=== PATIENT | female | born 1965 | race Caucasian/White ===

== ENCOUNTER 2016-06-17 08:41 | Emergency (ER) | payer SELFPAY ==
[2016-06-17 08:47] VITALS: RESP 16
[2016-06-17] MEDS ORDERED: HYDROcodone/APAP 5-325MG 1 EACH TAB PO STA (09:01)
--- NOTE | 2016-06-17 09:03 | ED ---
General Adult HPI - General Chief complaint: Extremity Injury, Upper Stated complaint: FALL, CHEST CONTUSION Time Seen by Provider: 06/17/16 08:56 Source: patient, RN notes reviewed Mode of arrival: ambulatory Limitations: no limitations - History of Present Illness Initial comments: Patient 51-year-old female who presents emergency room today with a chief complaint of a fall that occurred approximately 1 AM last night. She does admit that she took a Tylenol 3 after the fall with little relief the symptoms. She does admit that she tripped fell down to the left shoulder. States her arm was not outstretched. She admits that she's having increased pain to the left shoulder and left sided chest wall. Patient states worse with certain movements of abduction and extension. She does admit that hurts when she takes deep breath or coughs. She denies any head injury or loss conscious. She denies any other complaints. Patient denies any recent fever, chills, shortness of breath, chest pain, back pain, abdominal pain, nausea or vomiting, numbness or tingling, dysuria or hematuria, constipation or diarrhea, headaches or visual changes, or any other complaints. - Related Data Previous Rx's Medication Instructions Recorded Hydrocodone/Acetaminophen [[place] 1 each PO Q6HR PRN #20 tab 06/17/16 5-325] Ibuprofen [Motrin] 600 mg PO Q6HR PRN #40 day 06/17/16 Allergies Allergy/AdvReac Type Severity Reaction Status Date / Time latex Allergy Unknown Verified 06/17/16 08:47 Penicillins Allergy Unknown Verified 06/17/16 08:47 Sulfa (Sulfonamide Allergy Unknown Verified 06/17/16 08:47 Antibiotics) Review of Systems ROS Statement: Those systems with pertinent positive or pertinent negative responses have been documented in the HPI. ROS Other: All systems not noted in ROS Statement are negative. Past Medical History Past Medical History: No Reported History History of Any Multi-Drug Resistant Organisms: None Reported Past Surgical History: Section, Tonsillectomy Past Psychological History: Anxiety Smoking Status: Current every day smoker Past Alcohol Use History: Occasional Past Drug Use History: None Reported General Exam - General Exam Comments Initial Comments: General: The patient is awake and alert, in no distress, and does not appear acutely ill. Eye: Pupils are equal, round and reactive to light, extra-ocular movements are intact. No nystagmus. There is normal conjunctiva bilaterally. No signs of icterus. Ears, nose, mouth and throat: There are moist mucous membranes and no oral lesions. Neck: The neck is supple, there is no tenderness or JVD. Cardiovascular: There is a regular rate and rhythm. No murmur, rub or gallop is appreciated. Respiratory: Lungs are clear to auscultation, respirations are non-labored, breath sounds are equal. No wheezes, stridor, rales, or rhonchi. Musculoskeletal: Shows normal appearance of the cervical, thoracic, lumbar spine. No step-offs deformity. She appeared no tenderness over the spinous processes. Shows full range motion of her cervical spine. Patient has normal appearance of left shoulder no obvious deformity. Mild swelling. Tender locally over the before meals joint and posterior aspect. Patient is tender palpation over the left upper anterior ribs. Strength 5/5. Sensation intact. Pulses equal bilaterally 2+. Neurological: A&O x 3. CN II-XII intact, There are no obvious motor or sensory deficits. Coordination appears grossly intact. Speech is normal. Skin: Skin is warm and dry and no rashes or lesions are noted. Psychiatric: Cooperative, appropriate mood & affect, normal judgment. Limitations: no limitations Course Vital Signs 06/17/16 08:45 Temperature 97.1 F L Pulse Rate 73 Respiratory 16 Rate Blood Pressure 163/77 O2 Sat by Pulse 96 Oximetry Medical Decision Making - Medical Decision Making Patient x-rays reviewed and are unremarkable. Patient feeling better after [place] here in the emergency room. Patient will be discharged home advised follow-up with orthopedics for further evaluation. She'll be given a short prescription of [place] to go home with for pain along with anti-inflammatories of ibuprofen. Patient advised return if any symptoms increase or worsen or for any other concerns. Disposition Clinical Impression: Rib contusion, Shoulder injury Disposition: HOME SELF-CARE Condition: Good Instructions: Rib Contusion (ED), Rotator Cuff Injury (ED) Additional Instructions: Please follow-up with family doctor/orthopedic doctor as discussed. Please use medications as prescribed. Please be aware that the [place] may make you drowsy. Please use ice to the affected area for 20 minutes at a time 4 times daily. Please return to emergency room symptoms increase or worsen or for any other concerns. Prescriptions: Hydrocodone/Acetaminophen [[place] 5-325] 1 each PO Q6HR PRN #20 tab PRN Reason: Pain Ibuprofen [Motrin] 600 mg PO Q6HR PRN #40 day PRN Reason: Pain Referrals: None,Stated [Primary Care Provider] - 1-2 days Tavon Fall MD [STAFF PHYSICIAN] - 1-2 days Time of Disposition: 09:52
--- NOTE | 2016-06-17 09:45 | XR ---
EXAMINATION TYPE: PA chest and left rib series DATE OF EXAM: 06/17/2016 9:34 AM COMPARISON: NONE HISTORY: 51-year-old female left-sided rib pain from fall FINDINGS: Cardiomediastinal silhouette, aorta, and pulmonary vasculature are within normal limits. No consolida tion, pneumothorax, or pleural effusion. No displaced left rib fracture. IMPRESSION: No displaced left rib fracture or acute cardiopulmonary process seen.
--- NOTE | 2016-06-17 09:46 | XR ---
EXAMINATION TYPE: XR shoulder complete LT DATE OF EXAM: 06/17/2016 9:34 AM COMPARISON: NONE HISTORY: 51-year-old female with pain TECHNIQUE: 3 views FINDINGS: Some vacuum phenomenon noted at the AC joint which can be seen with distraction at the joint. AC join t remains congruent without abnormal widening. Subacromial space is preserved. There is smooth deline ation to the greater tuberosity. No acute fracture or dislocation. IMPRESSION: No acute osseous abnormality seen.
[2016-06-17 10:11] VITALS: BP 134/84; PULSE 62; TEMP 97.5
== END 2016-06-17 10:09 | disposition home or self-care (01) ==
LOC: EC 08:41
DX: S20.212A Contusion of left front wall of thorax, initial encounter (principal); S49.92XA Unspecified injury of left shoulder and upper arm, initial encounter; Z91.040 Latex allergy status; Z88.2 Allergy status to sulfonamides; Z88.0 Allergy status to penicillin; F17.200 Nicotine dependence, unspecified, uncomplicated
CPT/HCPCS: 99283

== ENCOUNTER → 2016-09-07 | Outpatient (CLI) | payer OTHER ==
--- NOTE | 2016-09-07 14:59 | BMR ---
EXAMINATION TYPE: MR breast BILAT wo/w con DATE OF EXAM: 09/07/2016 12:31 PM COMPARISON: Outside mammogram HISTORY: Abnormal mammogram, right breast mass TECHNIQUE: A series of fat and water weighted images in the long and short axis views of both breasts are obtained in conjunction with dynamic contrast MRI with subtraction technique. The patient was i njected with 15 mL intravenous MultiHance gadolinium contrast. Three-dimensional and additional pos tprocessing imaging is created on independent workstation and reviewed during official interpretation of this study. Patient was unable to complete the exam. FINDINGS: Left and right breast show background fibroglandular tissue. Scattered breast cysts are pre sent bilaterally. Scattered stippled background enhancement is present bilaterally. No suspicious mas s-like enhancement. There is no evident adenopathy. IMPRESSION: Left breast BI-RADS 2 benign, right breast BI-RADS 2 benign, follow[place] [facility] [place] Exam may be somewhat limited.
== END | disposition home or self-care (01) ==
LOC: RADMRIMAIN 11:04
PROVIDERS: ATTEND Surgery
DX: N63 Unspecified lump in breast (principal)
CPT/HCPCS: 0159T; C8908; A9577; 77059

== ENCOUNTER 2017-04-04 10:45 | Emergency (ER) | payer OTHER ==
[2017-04-04] MEDS ORDERED: PANTOPRAZOLE 40 MG/10 ML VIAL IVP STA (11:50)
[2017-04-04] MEDS ORDERED: SODIUM CHLORIDE 0.9% 1,000 ML IV STA (11:50)
[2017-04-04] MEDS ORDERED: MORPHINE SULFATE 2 MG/ML SYRINGE IV STA (11:50)
[2017-04-04] MEDS ORDERED: RX INFO: IV CONTRAST WAS GIVEN 1 EACH MISC MISCELLANE PRN (11:50)
[2017-04-04] MEDS ORDERED: ONDANSETRON 4 MG/2 ML VIAL IVP STA (11:50)
[2017-04-04 12:28] LABS: Basophils % (A) 0 %; CH 31.8; CHCM 33.6; Eosinophils # (A) 0.1 k/uL (0-0.7); Eosinophils % (A) 2 %; HDW 2.37; HGB 16.3 gm/dL (11.4-16.0); Luc # (Auto) 0.13; Luc % (Auto) 1; Lymphocytes # (A) 2.7 k/uL (1.0-4.8); Lymphocytes % (A) 28 %; MCH 31.7 pg (25.0-35.0); MCHC 33.4 g/dL (31.0-37.0); Mean Platelet Volume 7.3; Monocytes # (A) 0.4 k/uL (0-1.0); Monocytes % (A) 4 %; Neutrophils # (A) 6.1 k/uL (1.3-7.7); Neutrophils % (A) 64 %; RBC 5.16 m/uL (3.80-5.40); RDW 13.4 % (11.5-15.5); WBC 9.5 k/uL (3.8-10.6); WBC (Perox) 8.79
[2017-04-04 12:34] LABS: ALT 36 U/L (9-52); AST 17 U/L (14-36); Alkaline Phosphatase 106 U/L (38-126); Amylase 50 U/L (30-110); Anion Gap 10 mmol/L; Blood Urea Nitrogen 10 mg/dL (7-17); Calcium 9.6 mg/dL (8.4-10.2); Carbon Dioxide 25 mmol/L (22-30); Chloride 105 mmol/L (98-107); Glucose 89 mg/dL (74-99); Non-African American GFR(MDRD) >60 (>60 ml/min/1.73 sqM); Potassium 4.7 mmol/L (3.5-5.1); Sodium 140 mmol/L (137-145); Total Bilirubin 0.5 mg/dL (0.2-1.3); Total Protein 6.9 g/dL (6.3-8.2)
--- NOTE | 2017-04-04 12:37 | ED ---
General Adult HPI - General Chief complaint: Abdominal Pain Stated complaint: VOMITING BLOOD, WEAKNESS, ABDOMINAL PAIN Time Seen by Provider: 04/04/17 10:59 Source: patient, RN notes reviewed, old records reviewed Mode of arrival: ambulatory Limitations: no limitations - History of Present Illness Initial comments: This is a 52-year-old female to the ER for evaluation. Patient presents today for evaluation of abdominal pain. Patient has no history of prior abdominal pain. No medical history takes no specific medications. Patient denies history of smoking or drinking. Patient has no surgical history. Patient has history of epigastric about pain starting last night worse since today but mainly complaining of vomiting nausea vomiting. Patient vomited around 5 times. Initially no blood but has proceeded to have blood with her vomit. Patient denies feelings of lightheadedness or dizziness. Denies any recent fevers travel history or sick contacts. - Related Data Home Medications Medication Instructions Recorded Confirmed No Known Home Medications [No 04/04/17 04/04/17 Known Home Medications] Allergies Allergy/AdvReac Type Severity Reaction Status Date / Time latex Allergy Unknown Verified 04/04/17 11:18 Penicillins Allergy Unknown Verified 04/04/17 11:18 Sulfa (Sulfonamide Allergy Unknown Verified 04/04/17 11:18 Antibiotics) Review of Systems ROS Statement: Those systems with pertinent positive or pertinent negative responses have been documented in the HPI. ROS Other: All systems not noted in ROS Statement are negative. Past Medical History Past Medical History: No Reported History History of Any Multi-Drug Resistant Organisms: None Reported Past Surgical History: Section, Tonsillectomy Past Psychological History: Anxiety Smoking Status: Current every day smoker Past Alcohol Use History: None Reported Past Drug Use History: None Reported General Exam Limitations: no limitations General appearance: alert, in no apparent distress Head exam: Present: atraumatic, normocephalic, normal inspection Eye exam: Present: normal appearance, PERRL, EOMI. Absent: scleral icterus, conjunctival injection, periorbital swelling ENT exam: Present: normal exam, mucous membranes moist Neck exam: Present: normal inspection. Absent: tenderness, meningismus, lymphadenopathy Respiratory exam: Present: normal lung sounds bilaterally. Absent: respiratory distress, wheezes, rales, rhonchi, stridor Cardiovascular Exam: Present: regular rate, normal rhythm, normal heart sounds. Absent: systolic murmur, diastolic murmur, rubs, gallop, clicks GI/Abdominal exam: Present: soft, normal bowel sounds. Absent: distended, tenderness, guarding, rebound, rigid Extremities exam: Present: normal inspection, full ROM, normal capillary refill. Absent: tenderness, pedal edema, joint swelling, calf tenderness Back exam: Present: normal inspection Neurological exam: Present: alert, oriented X3, CN II-XII intact Psychiatric exam: Present: normal affect, normal mood Skin exam: Present: warm, dry, intact, normal color. Absent: rash Course Vital Signs 04/04/17 04/04/17 10:48 12:42 Temperature 97.4 F L Pulse Rate 69 71 Respiratory 18 20 Rate Blood Pressure 157/75 129/71 O2 Sat by Pulse 99 96 Oximetry - Reevaluation(s) Reevaluation #1: 04/04/17 13:24 Patient is currently eating food, currently eating soup in the emergency room without difficulty Medical Decision Making - Medical Decision Making 52 female in the ER for evaluation of the bowel pain nausea vomiting vomiting blood. Patient with currently eating food without difficulty lab work is normal no nausea currently, CT abdomen and pelvis is negative the patient can be discharged home - Lab Data Result diagrams: 04/04/17 12:14 04/04/17 12:14 Lab Results 04/04/17 04/04/17 04/04/17 Range/Units 12:14 12:14 12:14 WBC 9.5 (3.8-10.6) k/uL RBC 5.16 (3.80-5.40) m/uL Hgb 16.3 H (11.4-16.0) gm/dL Hct 49.0 H (34.0-46.0) % MCV 95.0 (80.0-100.0) fL MCH 31.7 (25.0-35.0) pg MCHC 33.4 (31.0-37.0) g/dL RDW 13.4 (11.5-15.5) % Plt Count 160 (150-450) k/uL Neutrophils % 64 % Lymphocytes % 28 % Monocytes % 4 % Eosinophils % 2 % Basophils % 0 % Neutrophils # 6.1 (1.3-7.7) k/uL Lymphocytes # 2.7 (1.0-4.8) k/uL Monocytes # 0.4 (0-1.0) k/uL Eosinophils # 0.1 (0-0.7) k/uL Basophils # 0.0 (0-0.2) k/uL Sodium 140 (137-145) mmol/L Potassium 4.7 (3.5-5.1) mmol/L Chloride 105 (98-107) mmol/L Carbon Dioxide 25 (22-30) mmol/L Anion Gap 10 mmol/L BUN 10 (7-17) mg/dL Creatinine 0.70 (0.52-1.04) mg/dL Est GFR (MDRD) Af Amer >60 (>60 ml/min/1.73 sqM) Est GFR (MDRD) Non-Af >60 (>60 ml/min/1.73 sqM) Glucose 89 (74-99) mg/dL Plasma Lactic Acid [place] (0.7-2.0) mmol/L Calcium 9.6 (8.4-10.2) mg/dL Total Bilirubin 0.5 (0.2-1.3) mg/dL AST 17 (14-36) U/L ALT 36 (9-52) U/L Alkaline Phosphatase 106 (38-126) U/L Total Creatine Kinase 42 (30-135) U/L CK-MB (CK-2) 0.8 (0.0-2.4) ng/mL CK-MB (CK-2) Rel Index 1.9 Troponin I <0.012 (0.000-0.034) ng/mL Total Protein 6.9 (6.3-8.2) g/dL Albumin 4.2 (3.5-5.0) g/dL Amylase 50 (30-110) U/L Lipase 50 (23-300) U/L 04/04/17 Range/Units 12:14 WBC (3.8-10.6) k/uL RBC (3.80-5.40) m/uL Hgb (11.4-16.0) gm/dL Hct (34.0-46.0) % MCV (80.0-100.0) fL MCH (25.0-35.0) pg MCHC (31.0-37.0) g/dL RDW (11.5-15.5) % Plt Count (150-450) k/uL Neutrophils % % Lymphocytes % % Monocytes % % Eosinophils % % Basophils % % Neutrophils # (1.3-7.7) k/uL Lymphocytes # (1.0-4.8) k/uL Monocytes # (0-1.0) k/uL Eosinophils # (0-0.7) k/uL Basophils # (0-0.2) k/uL Sodium (137-145) mmol/L Potassium (3.5-5.1) mmol/L Chloride (98-107) mmol/L Carbon Dioxide (22-30) mmol/L Anion Gap mmol/L BUN (7-17) mg/dL Creatinine (0.52-1.04) mg/dL Est GFR (MDRD) Af Amer (>60 ml/min/1.73 sqM) Est GFR (MDRD) Non-Af (>60 ml/min/1.73 sqM) Glucose (74-99) mg/dL Plasma Lactic Acid [place] 1.0 (0.7-2.0) mmol/L Calcium (8.4-10.2) mg/dL Total Bilirubin (0.2-1.3) mg/dL AST (14-36) U/L ALT (9-52) U/L Alkaline Phosphatase (38-126) U/L Total Creatine Kinase (30-135) U/L CK-MB (CK-2) (0.0-2.4) ng/mL CK-MB (CK-2) Rel Index Troponin I (0.000-0.034) ng/mL Total Protein (6.3-8.2) g/dL Albumin (3.5-5.0) g/dL Amylase (30-110) U/L Lipase (23-300) U/L - Radiology Data Radiology results: report reviewed (CT abdomen and pelvis is negative for acute disease), image reviewed Disposition Clinical Impression: Mia-Alford tear, Nausea & vomiting Disposition: HOME SELF-CARE Condition: Good Instructions: Hematemesis (ED), Gastroenteritis (ED) Referrals: None,Stated [Primary Care Provider] - 1-2 days
[2017-04-04 12:46] LABS: Creatine Kinase 42 U/L (30-135)
--- NOTE | 2017-04-04 12:51 | CT ---
EXAMINATION TYPE: CT abdomen pelvis w con DATE OF EXAM: 04/04/2017 COMPARISON: NONE HISTORY: 52-year-old female Upper Abdominal pain and vomiting blood today TECHNIQUE: Contiguous axial scanning of the abdomen and pelvis following administration of 100 ml Omn ipaque 300 IV contrast. Delayed images through the kidneys and coronal/sagittal reconstructions perf ormed. CT DLP: 1237 mGycm Automated exposure control for dose reduction was used. FINDINGS: The heart is normal size without pericardial effusion. Lung bases clear without pleural effusion. There may be mild diffuse gastric fold thickening. There is an intermediate density 1.9 cm lesion posterior right liver lobe with attenuation of 49 Houn sfield units. This does not significantly change on the delayed kidney images. Otherwise, no focal li michael lesion. There is prominent breathing motion artifact causing some limitation in assessment. No biliary ductal dilatation. Portal venous system appears patent. The gallbladder, adrenal glands, kidneys, spleen, and pancreas appear within normal limits. No dilated small bowel, free fluid, or free air. Mildly enlarged 9 mm right lower quadrant mesenteric lymph node is nonspecific. Otherwise, no mesente megan or retroperitoneal lymphadenopathy seen. Normal appendix. Some liquid stool noted in the right hemicolon. Mild sigmoid diverticulosis without pericolonic infla mmatory change. Heterogeneous appearance to the uterus with suggestion of underlying posterior uterine body fibroid m easuring 2.1 cm. This appears to be in intramural location. There is some calcification seen along th e endometrial stripe and junctional zone. Further ultrasound evaluation can be considered. The endome trial stripe may be abnormally thickened towards the left fundus measuring up to 2.5 cm or this could represent additional underlying fibroid, refer to sagittal image 33 and axial image 69. Bladder is urine distended. Ovaries not clearly identified. No abnormal fluid collection in the pelvi s. Bones: No osseous destructive process. IMPRESSION: 1. MILD DIFFUSE GASTRIC FOLD THICKENING AND SOME LIQUID STOOL IN THE RIGHT HEMICOLON. CORRELATE FOR P OSSIBLE GASTROENTERITIS. 2. QUERY PATIENT'S MENOPAUSAL STATUS. THERE MAY BE SOME EXCESSIVE ENDOMETRIAL THICKENING TOWARDS THE LEFT SIDE OF THE FUNDUS UP TO 2.5 CM. FURTHER ULTRASOUND EVALUATION IS RECOMMENDED. IF THERE ARE NO A CUTE PELVIC SYMPTOMS, THIS CAN BE PERFORMED ON A NONEMERGENT BASIS. 3. INDETERMINANT 1.9 CM HYPODENSE LESION POSTERIOR RIGHT LIVER LOBE. THIS DOES NOT SEEM TO CHANGE ATT ENUATION ON THE DELAYED KIDNEY IMAGES. AN ATYPICAL HEMANGIOMA AND COMPLICATED CYST ARE SOME OF THE BE NIGN DIFFERENTIAL CONSIDERATIONS. A 3-6 MONTH FOLLOW-UP IS RECOMMENDED TO ENSURE STABILITY. 4. A NONSPECIFIC MILDLY ENLARGED MESENTERIC LYMPH NODE MEASURING 9 MM IS PROBABLY REACTIVE/POST INFLA MMATORY. THIS CAN ALSO BE REASSESSED AT THE FOLLOW-UP.
[2017-04-04 12:58] LABS: Creatine Kinase MB 0.8 ng/mL (0.0-2.4); Troponin I <0.012 ng/mL (0.000-0.034)
[2017-04-04 13:35] VITALS: BP 135/81; PULSE 65; RESP 18; TEMP 98
== END 2017-04-04 13:38 | disposition home or self-care (01) ==
LOC: EC 10:45
DX: K22.6 Gastro-esophageal laceration-hemorrhage syndrome (principal); F17.200 Nicotine dependence, unspecified, uncomplicated; Z91.040 Latex allergy status; Z88.0 Allergy status to penicillin; Z88.2 Allergy status to sulfonamides
CPT/HCPCS: 99284 ×2; 96374 ×2; 96361 ×2; 36415; 80053; 82150; 82550; 82553; 83605; 83690; 84484; 85025; 74177; Q9967; C9113

== ENCOUNTER 2017-07-04 22:01 | Inpatient (IN) | payer MEDICAID, OTHER ==
--- NOTE | 2017-07-04 23:32 | ED ---
General Adult HPI - General Chief complaint: Psychiatric Symptoms Stated complaint: Mental Health Time Seen by Provider: 07/04/17 22:15 Source: patient, family, RN notes reviewed, old records reviewed Mode of arrival: ambulatory Limitations: no limitations - History of Present Illness Initial comments: 52-year-old female presents for evaluation of suicidal ideation. Patient denies any suicide attempt. She denies a specific plan. She does admit to being significantly depressed with suicidal thoughts since her boyfriend committed suicide approximately 2 weeks ago. She states she has no other live, no job. She blames herself for her preference suicide. She states her family also blames her for the suicide. She denies any suicide attempt, including no ingestion. She has no significant past medical history not currently on any medications. She denies any physical complaints. She has remote history of inpatient psychiatric treatment. She is currently seeing a counselor. - Related Data Home Medications Medication Instructions Recorded Confirmed No Known Home Medications [No 04/04/17 07/04/17 Known Home Medications] Allergies Allergy/AdvReac Type Severity Reaction Status Date / Time latex Allergy Unknown Verified 07/04/17 22:33 Penicillins Allergy Unknown Verified 07/04/17 22:33 Sulfa (Sulfonamide Allergy Unknown Verified 07/04/17 22:33 Antibiotics) Review of Systems ROS Statement: Those systems with pertinent positive or pertinent negative responses have been documented in the HPI. ROS Other: All systems not noted in ROS Statement are negative. Past Medical History Past Medical History: No Reported History History of Any Multi-Drug Resistant Organisms: None Reported Past Surgical History: Section, Tonsillectomy Additional Past Surgical History / Comment(s): rhinoplasty Past Psychological History: Anxiety, Depression Smoking Status: Current every day smoker Past Alcohol Use History: None Reported Past Drug Use History: None Reported General Exam Limitations: no limitations General appearance: alert, in no apparent distress Head exam: Present: atraumatic, normocephalic Eye exam: Present: normal appearance, PERRL ENT exam: Present: normal exam Neck exam: Present: normal inspection. Absent: meningismus Respiratory exam: Present: wheezes (Scattered wheezing, with good air entry). Absent: respiratory distress, rhonchi Cardiovascular Exam: Present: regular rate, normal rhythm GI/Abdominal exam: Present: soft. Absent: distended, tenderness, guarding Extremities exam: Present: normal inspection, normal capillary refill. Absent: pedal edema Back exam: Present: normal inspection, full ROM. Absent: tenderness Neurological exam: Present: alert, oriented X3, CN II-XII intact, motor sensory deficit Psychiatric exam: Present: depressed, suicidal ideation Skin exam: Present: warm, dry, intact. Absent: cyanosis, diaphoretic Course Vital Signs 07/04/17 22:05 Temperature 98.0 F Pulse Rate 66 Respiratory 16 Rate Blood Pressure 144/80 O2 Sat by Pulse 97 Oximetry - Reevaluation(s) Reevaluation #1: 07/04/17 23:32 Patient is medically cleared, awaiting EPS evaluation. Medical Decision Making - Medical Decision Making 52-year-old female presenting with depression and suicidal ideation. Patient is medically cleared, evaluated by EPS, she will need for inpatient psychiatric treatment. She agrees to sign herself in. - Lab Data Lab Results 07/04/17 Range/Units 22:27 Urine Opiates Screen Not Detected (NotDetected) Ur Oxycodone Screen Not Detected (NotDetected) Urine Methadone Screen Not Detected (NotDetected) Ur Propoxyphene Screen Not Detected (NotDetected) Ur Barbiturates Screen Not Detected (NotDetected) U Tricyclic Antidepress Not Detected (NotDetected) Ur Phencyclidine Scrn Not Detected (NotDetected) Ur Amphetamines Screen Not Detected (NotDetected) U Methamphetamines Scrn Not Detected (NotDetected) U Benzodiazepines Scrn Not Detected (NotDetected) Urine Cocaine Screen Not Detected (NotDetected) U Marijuana (THC) Screen Not Detected (NotDetected) Disposition Clinical Impression: Suicidal ideation, Depression Disposition: ADMITTED IP TO THIS HOSP Referrals: None,Stated [Primary Care Provider] - 1-2 days Decision to Admit Reason: Admit from EC Decision Date: 07/05/17 Decision Time: 00:48
[2017-07-04 23:43] LABS: Amphetamine Screen,Urine Not Detected (NotDetected); Barbiturate Screen,Urine Not Detected (NotDetected); Benzodiazepines Screen,Urine Not Detected (NotDetected); Cocaine Screen,Urine Not Detected (NotDetected); Methadone Screen, Urine Not Detected (NotDetected); Opiate Screen,Urine Not Detected (NotDetected); Oxycodone Screen, Urine Not Detected (NotDetected); Phencyclidine Screen,Urine Not Detected (NotDetected); Tricyclic Antidepressant,Urine Not Detected (NotDetected); Urn Cannabinoid Scrn Not Detected (NotDetected)
[2017-07-05] MEDS ORDERED: MAGNESIUM HYDROXIDE 2,400 MG/10 ML CUP PO PRN (01:16)
[2017-07-05] MEDS ORDERED: ACETAMINOPHEN TAB 325 MG TAB PO PRN (01:16)
[2017-07-05] MEDS ORDERED: MAG HYDROX/AL HYDROX/SIMETH 30 ML CUP PO PRN (01:16)
[2017-07-05 04:01] VITALS: BMI 24.5
[2017-07-05] MEDS ORDERED: NICOTINE 14MG/24HR PATCH TRANSDERM SCH (09:00)
[2017-07-05 09:10] LABS: Basophils # (A) 0.1 k/uL (0-0.2); Basophils % (A) 1 %; Eosinophils # (A) 0.2 k/uL (0-0.7); Eosinophils % (A) 2 %; HCT 46.5 % (34.0-46.0); HGB 15.4 gm/dL (11.4-16.0); Lymphocytes # (A) 2.9 k/uL (1.0-4.8); Lymphocytes % (A) 36 %; MCH 31.8 pg (25.0-35.0); MCV 96.3 fL (80.0-100.0); Mean Platelet Volume 8.5; Monocytes # (A) 0.3 k/uL (0-1.0); Monocytes % (A) 4 %; Neutrophils # (A) 4.5 k/uL (1.3-7.7); Neutrophils % (A) 55 %; Platelet Count 162 k/uL (150-450); RBC 4.83 m/uL (3.80-5.40); RDW 12.8 % (11.5-15.5); WBC 8.2 k/uL (3.8-10.6)
[2017-07-05] MEDS: FLUoxetine HCL 20 MG CAP PO SCH (11:02)
[2017-07-05] MEDS ORDERED: NICOTINE 14MG/24HR PATCH TRANSDERM PRN (11:24)
--- NOTE | 2017-07-05 11:35 | P.HPMEDMHU ---
History of Present Illness H&P Date: 07/05/17 Chief Complaint: back pain Patient is a 52 yo female with a past medical history of tobacco abuse, depression, and back pain currently admitted to the mental health unit with suicidal ideation. Her boyfriend recently committed suicide and she has been struggling with depression since that time. Patient seen an examined. She states that she was supposed to start seeing a family doctor for her depression and back pain. She has struggled with back pain for years. It is worse when she is standing in one place for a long time or lifting things. She has tried motrin which has not helped. She states that tylenol does not agree with her stomach. She denies leg weakness and numbness and tingling. She does not want to try mobic and her back is not currently bothering her as she is not working. She denies any bladder or bowel incontinence. Review of Systems General: no fever/chills, no rigors, no weight loss/weight gain, no unusual fatigue Eyes: no noticable visual changes, no loss of vision ENT: no rhinorrhea, no congestion, no sore throat Cardiovascular: no chest pain, no palpitations, no preyncope/syncope, no edema Pulmonary: no shortness of breath, no wheezing, + chronic cough Abdominal: no abdominal pain, no constipation, no diarrhea, no vomiting, no nausea Genitourinary: no dysuria, no urinary frequency, no unusual discharge/odor Neuro: no unusual paresthesias, no unusual paresis/paralysis, no headache Dermatologic: no unusual rashes, no unusual lesions, no unusual changes in nails Hematologic: no hemoptysis, no hematuria, no melena/hematochezia Psychiatric: Depression, poor overall sleep pattern Skeletal: + Chronic low back pain Past Medical History Past Medical History: No Reported History History of Any Multi-Drug Resistant Organisms: None Reported Past Surgical History: Section, Tonsillectomy Additional Past Surgical History / Comment(s): rhinoplasty Smoking Status: Current every day smoker - Past Family History Mother Family Medical History: Diabetes Mellitus, Hypertension Additional Family Medical History / Comment(s): chronic kidney disease Father Family Medical History: Cancer Additional Family Medical History / Comment(s): lung cancer Medications and Allergies Home Medications Medication Instructions Recorded Confirmed Type No Known Home Medications [No 04/04/17 07/05/17 History Known Home Medications] Allergies Allergy/AdvReac Type Severity Reaction Status Date / Time latex Allergy Unknown Verified 07/05/17 04:28 Penicillins Allergy Unknown Verified 07/05/17 04:28 Sulfa (Sulfonamide Allergy Unknown Verified 07/05/17 04:28 Antibiotics) Physical Exam Osteopathic Statement: *. No significant issues noted on an osteopathic structural exam other than those noted in the History and Physical/Consult. Vitals: Vital Signs Temp Pulse Pulse Resp BP BP Pulse Ox 07/05/17 03:46 97.7 F 53 L 15 123/82 07/05/17 01:17 98.5 F 87 18 149/79 97 07/04/17 22:05 98.0 F 66 16 144/80 97 Intake and Output 07/04/17 07/05/17 07/05/17 22:59 06:59 14:59 Other: Weight 63.503 kg 66.8 kg General: non toxic, no distress, appears at stated age, normal weight Derm: no unusual rashes/lesions no unusual ecchymoses, warm, dry Head: atraumatic, normocephalic, symmetric Eyes: EOMI, no lid lag, anicteric sclera, pupils equal round reactive to light ENT: Nose and ears atraumatic, no thrush, no pharyngeal erythema Neck: No thyromegaly, no cervical lymphadenopathy, trachea midline, supple Mouth: no lip lesion, mucus membranes moist Cardiovascular: S1S2 reg, no murmur, positive posterior tibial pulse bilateral, no edema, capillary refill less than 2 seconds Lungs: Breath sounds bilaterally, no rhonchi, no rales , no accessory muscle use Abdominal: soft, nontender to palpation, no guarding, no appreciable organomegaly, normal bowel sounds Ext: no gross muscle atrophy, muscle strength in all 4 extremities grossly normal, no contractures, Neuro: CN II-XI grossly intact, light touch intact all 4 extremities Psych: Alert, oriented, anxious, crying, fidgeting throughout conversation Cranial Nerve Examination - Cranial Nerves Cranial Nerve II- Optic: Intact Cranial Nerve III- Oculomotor: Intact Cranial Nerve IV- Trochlear: Intact Cranial Nerve V- Trigeminal: Intact Cranial Nerve - Abducens: Intact Cranial Nerve VII- Facial: Intact Cranial Nerve VIII- Auditory: Intact Cranial Nerve IX- Glossopharyngeal: Intact Cranial Nerve X- Vagus: Intact Cranial Nerve XI- Accessory: Intact Cranial Nerve XII- Hypoglossal: Intact Results CBC & Chem 7: 07/05/17 08:33 Labs: Abnormal Lab Results - Last 24 Hours (Table) 07/05/17 Range/Units 08:33 Hct 46.5 H (34.0-46.0) % Thrombosis Risk Factor Assmnt - DVT/VTE Prophylaxis DVT/VTE Prophylaxis: Low risk, early ambulation encouraged - Choose All That Apply Each Factor Represents 1 point: Age 41-60 years Thrombosis Risk Factor Assessment Total Risk Factor Score: 1 Thrombosis Risk Factor Assessment Level: Low Risk Assessment and Plan Assessment: Chronic low back pain - motrin prn - outpatient evaluation Tobacco abuse - cessation - nicotine replacement as needed Depression with suicidal ideation - your psych management Thank you for allowing us to participate in the care of this patient. We will follow peripherally. Do not hesitate to contact us with questions. Someone can be reached from the [facility] hospitalist group at all hours of the day at [phone].
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
[2017-07-06 09:24] LABS: ALT 31 U/L (9-52); AST 17 U/L (14-36); Albumin 4.3 g/dL (3.5-5.0); Alkaline Phosphatase 75 U/L (38-126); Anion Gap 11 mmol/L; Blood Urea Nitrogen 15 mg/dL (7-17); Calcium 10.1 mg/dL (8.4-10.2); Carbon Dioxide 29 mmol/L (22-30); Chloride 103 mmol/L (98-107); Glucose 158 mg/dL (74-99); Potassium 4.9 mmol/L (3.5-5.1); Sodium 143 mmol/L (137-145); Total Bilirubin 0.4 mg/dL (0.2-1.3); Total Protein 7.1 g/dL (6.3-8.2)
[2017-07-06] MEDS: FLUoxetine HCL 20 MG CAP PO SCH (09:39)
--- NOTE | 2017-07-06 14:58 | PN ---
PROGRESS NOTE INTERVAL HISTORY: Patient is seen in cross coverage today for Dr. White. She talks about recent stressor of her significant other committing suicide. She talks about her son having brought her to the hospital. She states that she does not have any active thoughts of harm to self or others. She has a feeling like she has been doing some crying/grieving. She does talk about feelings of anger. We talked about healthy coping skills for dealing with anger. She does talk about having a family meeting with her son, but does not know yet when this is scheduled. On mental status exam she is alert and pleasant overall and cooperative. She is tearful. She has a sad mood. She denies any thoughts of harm to self or others. No evidence of active psychosis. PLAN: Patient will be maintained on current dose of Prozac, which is a new medication for her. Will monitor for any medication side effects. Continue to monitor regarding any thoughts of suicide. Will continue to cover this patient for Dr. White through the weekend. MMODL / IJN: [id number] /
[2017-07-07] MEDS: FLUoxetine HCL 20 MG CAP PO SCH (09:49)
[2017-07-07] MEDS: IBUPROFEN 600 MG TAB PO PRN ×2 (12:17→20:15)
--- NOTE | 2017-07-07 17:22 | PN ---
PROGRESS NOTE DATE OF SERVICE: 07/07/2017. INTERVAL HISTORY: Patient is seen in cross coverage today for Dr. White. She does feel like her mood is doing better overall. She realizes that she is going to have some difficult times with the grieving process. When she talks about wanting to get a job, talks about perhaps moving out of her current county. She is taking the Prozac, seems to be tolerating that fine. MENTAL STATUS EXAM: She is alert, slightly tearful at times. She described her mood as doing better overall. She denies any thoughts of harm to self or others. No evidence of psychosis or agitation. PLAN: Patient will be maintained on current dose of Prozac. She will be monitored regarding any medication side effects and her ongoing response. Dr. White to resume care of this patient starting tomorrow. RAFFY / FLORIDALMA: [id number] /
[2017-07-08] MEDS: FLUoxetine HCL 20 MG CAP PO SCH (08:56)
--- NOTE | 2017-07-08 22:15 | PN ---
PROGRESS NOTE DATE OF SERVICE: 07/08/2017. CHIEF COMPLAINT: The patient was depressed he she had suicide thoughts without a plan. She had significant grief issues with her significant other committing suicide days prior to this admission. INTERVAL HISTORY: The patient has been doing fairly well. She had a quiet evening last night. She slept well. Today she has been up and about. She attends group. She said that she had a successful family meeting on Saturday. She does feel that she has been able talked through some issues and to deal with some of her grief. She acknowledges that she is likely to have ongoing grief for period of time. She does say that she needs to work on disconnecting herself from the guilt that she feels. She has been setting up plans to move to [place] where the overall situation is better for her. She feels that she has a better chance at getting a job. She believes that getting away from people that have been critical of her would be a good step. Also, she has not had change in her general health. She tolerates psychotropic medications. MENTAL STATUS: Patient gave a fair eye contact. Psychomotor activity was slowed. Speech was monotone. She answered questions with brief responses. Her thoughts were clear. Her affect was blunted. Her mood reserved. She did show appropriate emotional response included some crying when she talked about grief issues. ASSESSMENT: I will continue the current diagnosis and treatment plan. We discussed medication options including the possibility of adding on augmentation medication. Patient stated that she was comfortable where her medications were at. She said she understood the idea that she needed to give the medication time and that she also needed to focus on a lot of personal issues to full if move forward in her life. We will focus on stabilization and discharge planning. RAFFY / FLORIDALMA: [id number] /
[2017-07-09 06:51] VITALS: BP 104/59; PULSE 51; RESP 18; TEMP 98.6
[2017-07-09] MEDS: FLUoxetine HCL 20 MG CAP PO SCH (09:42)
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
== END 2017-07-09 11:37 | disposition home or self-care (01) | DRG 881 ==
LOC: EC 22:01 → 3MHU 07-05 01:13
PROVIDERS: ADMIT Psychiatry & Neurology Psychiatry; ATTEND Psychiatry & Neurology Psychiatry
DX: F32.9 Major depressive disorder, single episode, unspecified (principal); R45.851 Suicidal ideations; F43.20 Adjustment disorder, unspecified; G89.29 Other chronic pain; F17.200 Nicotine dependence, unspecified, uncomplicated; F41.9 Anxiety disorder, unspecified; M54.5 Low back pain; Z88.0 Allergy status to penicillin; Z88.2 Allergy status to sulfonamides; Z91.040 Latex allergy status; Z90.89 Acquired absence of other organs; Z79.899 Other long term (current) drug therapy; Z83.3 Family history of diabetes mellitus; Z82.49 Family history of ischemic heart disease and other diseases of the circulatory system; Z84.1 Family history of disorders of kidney and ureter; Z80.1 Family history of malignant neoplasm of trachea, bronchus and lung
CPT/HCPCS: 80053; 80306; 82075; 84443; 85025; 99285